=== PATIENT | female | born 2000 | race African-American/Black ===

== ENCOUNTER 2019-03-06 23:24 | Emergency (ER) | payer SELFPAY ==
[~2019-03-06] VITALS: Ht 172.7 cm; Wt 67.6 kg
[2019-03-06 23:47] VITALS: Ht 172.7 cm; Wt 67.6 kg
[2019-03-07 01:03] VITALS: BP 99/47
== END 2019-03-07 01:03 | disposition home or self-care (01) ==
LOC: ED 23:24
DX: B34.9 Viral infection, unspecified (principal); M54.5 Low back pain
CPT/HCPCS: 87804; J1885; J2405; J7030